=== PATIENT | female | born 1975 | race Asian ===

== ENCOUNTER 2024-07-29 09:33 | Emergency (ER) | payer OTHER ==
[~2024-07-29] VITALS: Ht 165.1 cm; Wt 70.0 kg
[2024-07-29 09:35] VITALS: O2SAT 99
[2024-07-29 10:53] LABS: BASOPHILS % 0.5 % (0.0-2.0); DIFFERENTIAL COMMENT 0; EOSINOPHILS % 0.3 % (0.0-5.0); HEMATOCRIT. 31.5 % (36.0-48.0); HEMOGLOBIN. 9.4 g/dL (12.0-16.0); LYMPHOCYTES % 9.3 % (20.0-50.0); MEAN CORPUSCULAR HEMOGLOBIN 22.4 pg (28.0-32.0); MEAN CORPUSCULAR HGB CONC 29.7 g/dL (31.0-37.0); MEAN CORPUSCULAR VOLUME 75.4 fL (81.0-99.0); MONOCYTES % 8.6 % (2.0-8.0); NEUTROPHILS % 81.3 % (40.0-76.0); PLATELET 300 x1000/uL (130-400); RED BLOOD CELL COUNT 4.18 mill/uL (4.2-5.4); RED CELL DISTRIBUTION WIDTH 18.3 % (11.6-14.6); WHITE BLOOD COUNT 10.4 x1000/uL (4.5-11.0)
[2024-07-29 11:00] LABS: CHLORIDE 104 mEq/L (98-107); POTASSIUM 3.7 mEq/L (3.5-5.1); SODIUM 142 mEq/L (136-145)
[2024-07-29 11:01] LABS: CALCIUM 9.5 mg/dL (8.7-10.4); CARBON DIOXIDE 24 mEq/L (21-32)
[2024-07-29 11:06] LABS: CREATININE 0.8 mg/dL (0.6-1.0); GLUCOSE 101 mg/dL (70-105); UREA NITROGEN BLOOD 29 mg/dL (9-23)
[2024-07-29 11:08] LABS: AMMONIA < 17 uMol/L (<32)
[2024-07-29 11:09] LABS: ETHANOL BLOOD < 10 mg/dL (<10); TROPONIN I HIGH SENSITIVITY < 4 ng/L (3.0-34)
[2024-07-29] MEDS: LORAZEPAM 1MG TABLET PO ONE (14:28)
[2024-07-29] MEDS: HALOPERIDOL LACTATE 5MG/ML VIAL IM ONE (14:30)
[2024-07-29] MEDS: LORAZEPAM 2MG/ML INJ IV ONE (14:30)
[2024-07-30 06:00] VITALS: TEMP 36.7
[2024-07-30 15:19] LABS: *AMPHETAMINES SCREEN URINE NEGATIVE (NEGATIVE); *BARBITURATES SCREEN URINE NEGATIVE (NEGATIVE); *BENZODIAZEPINES SCREEN URINE PRESUMPTIVE POSITIVE (NEGATIVE); *COCAINE SCREEN URINE NEGATIVE (NEGATIVE); CANNABINOID URINE SCREEN NEGATIVE (NEGATIVE); ECSTASY MDMA SCREEN URINE NEGATIVE (NEGATIVE); METHADONE URINE SCREEN NEGATIVE (NEGATIVE); OPIATES URINE SCREEN NEGATIVE (NEGATIVE); PHENCYCLIDINE URINE SCREEN NEGATIVE (NEGATIVE)
[2024-07-30 16:14] LABS: CLARITY URINE CLEAR (CLEAR); COLOR URINE YELLOW (YELLOW)
[2024-07-30 16:15] LABS: GLUCOSE URINE NEGATIVE (NEGATIVE); PROTEIN URINE TRACE (NEGATIVE)
[2024-07-30 16:16] LABS: KETONES URINE 2+ (NEGATIVE); NITRITE URINE NEGATIVE (NEGATIVE); OCCULT BLOOD URINE 2+ (NEGATIVE); UROBILINOGEN URINE 0.2 E.U./dL (0.2-1.0)
[2024-07-30 16:17] LABS: LEUKOCYTE ESTERASE URINE NEGATIVE (NEGATIVE)
[2024-07-30 17:12] LABS: SQUAMOUS EPITHELIAL CELL URINE 1+ /lpf (RARE/1+); WBC URINE 0-2 /hpf (0-2)
[2024-07-30 17:13] LABS: BACTERIA URINE 2+
[2024-07-30 18:24] LABS: UCG KIT LOT# 907863; UCG SCREEN NEGATIVE
[2024-07-30 18:48] VITALS: BP 105/60; PULSE 90; RESP 12; O2SAT 99
== END 2024-07-30 19:26 | disposition home or self-care (01) ==
LOC: EDBD 09:48 → ER 09:48 → CANBEDREQ 15:48 → ER 07-30 19:26
DX: F22 Delusional disorders (principal); R41.82 Altered mental status, unspecified; F29 Unspecified psychosis not due to a substance or known physiological condition; Z79.899 Other long term (current) drug therapy; Z20.822 Contact with and (suspected) exposure to COVID-19
CPT/HCPCS: 80048; 80320; 82140; 83605; 83690; 85025; 84484; 36415; 71045; 70450; 93005 ×2; 96372; 96374; 99285; 80305; 81003; 81025; 87426; J1630; J2060; Z7610 ×4; A4606; G0480